=== PATIENT | male | born 1970 | race Two or more races ===

== ENCOUNTER → 2021-07-26 | Emergency (ER) | payer OTHER ==
[~2021-07-26] VITALS: Ht 172.7 cm; Wt 86.2 kg
[~2021-07-26] MED LIST: ADULT LOW DOSE81 M1; CRESTOR10 MG; LOVAZA1 GM; MICARDIS80 MG
== END | disposition left against medical advice (07) ==
LOC: ER 02:59
DX: Z53.21 Procedure and treatment not carried out due to patient leaving prior to being seen by health care provider (principal)